=== PATIENT | male | born 1960 | race African-American/Black ===

== ENCOUNTER 2017-01-06 12:00 | Emergency (ER) | payer MEDICAID ==
[~2017-01-06] VITALS: Ht 177.8 cm; Wt 86.5 kg
[2017-01-06] MEDS ORDERED: AMLO5TAB2 PO (12:29)
[2017-01-06] MEDS ORDERED: cholesterol pill PO (12:29)
[2017-01-06] MEDS ORDERED: LISI-167 PO (12:29)
[2017-01-06] MEDS ORDERED: HYDROcodone/APAP 5/325 TABLET ONE (12:48)
[2017-01-06] MEDS ORDERED: HYDROcodone/APAP 5/325 TABLET PO PRN (13:00)
[2017-01-06 13:36] VITALS: BP 147/108
== END 2017-01-06 13:39 | disposition home or self-care (01) ==
LOC: ED 13:27
DX: M72.2 Plantar fascial fibromatosis (principal); M10.9 Gout, unspecified; I10 Essential (primary) hypertension; F12.10 Cannabis abuse, uncomplicated
CPT/HCPCS: 99284

== ENCOUNTER 2017-02-23 13:36 | Emergency (ER) | payer MEDICAID ==
[~2017-02-23] VITALS: Ht 180.3 cm; Wt 83.3 kg
[~2017-02-23 13:36] MED LIST: AMLO5TAB2 PO; LISI-167 PO; cholesterol pill PO
[2017-02-23 13:38] VITALS: BP 145/103
== END 2017-02-23 15:26 ==
LOC: ED 14:24
DX: R31.9 Hematuria, unspecified (principal)
CPT/HCPCS: 99281

== ENCOUNTER 2017-02-23 14:39 | Inpatient (IN) | payer MEDICAID ==
[~2017-02-23] VITALS: Ht 180.3 cm; Wt 87.2 kg
[2017-02-23 15:28] VITALS: BP 159/121
[2017-02-23] MEDS ORDERED: ACETAMINOPHEN 325 MG TABLET PO PRN (15:30)
[2017-02-23] MEDS ORDERED: DOCUSATE 100 MG CAPSULE PO PRN (15:30)
[2017-02-23] MEDS: NICOTINE 14MG/24 HR PATCH.TD24 TD SCH (15:30)
[2017-02-23] MEDS ORDERED: BISACODYL 10 MG SUPP PR PRN (15:30)
[2017-02-23] MEDS ORDERED: ONDANSETRON 2MG/ML, 2ML IVPush PRN (15:30)
[2017-02-23] MEDS ORDERED: POLYETHYLENE GLYCOL 17 GM PACKET PO PRN (15:30)
[2017-02-23] MEDS ORDERED: ZOLPIDEM 5MG TABLET PO PRN (15:30)
[2017-02-23] MEDS ORDERED: OXYcodone IR 5MG TABLET PO PRN (15:30)
[2017-02-23] MEDS ORDERED: CEFTRIAXONE 2 GM in SODIUM CHLORIDE 0.9% 50 ML IV SCH (15:30)
[2017-02-23] MEDS: PLEASE ENTER HEIGHT AND WEIGHT MC SCH (16:00)
[2017-02-23] MEDS: CEFTRIAXONE PMX 2GM/50ML 50 ML IV SCH (16:52)
[2017-02-23] MEDS: metroNIDAZOLE 500 MG TABLET PO SCH ×2 (16:53→21:24)
[2017-02-23 18:24] VITALS: BP 156/116
[2017-02-23] MEDS: hydrALAzine 20 MG/ML, 1ML IVPush PRN (19:52)
[2017-02-23] MEDS: SODIUM CHLORIDE FLUSH 3ML SYRINGE IVF SCH (21:00)
[2017-02-23] MEDS: AMLODIPINE 5 MG TABLET PO SCH (21:24)
[2017-02-24 01:24] VITALS: BP 143/87
[2017-02-24 04:25] LABS: BLOOD UREA NITROGEN 20 mg/dL (7-18)
[2017-02-24] MEDS: PLEASE ENTER HEIGHT AND WEIGHT MC SCH ×2 (08:00)
[2017-02-24 08:57] VITALS: BP 154/11
[2017-02-24] MEDS: SODIUM CHLORIDE FLUSH 3ML SYRINGE IVF SCH ×2 (09:00→21:00)
[2017-02-24] MEDS: hydrALAzine 20 MG/ML, 1ML IVPush PRN ×2 (10:26→17:17)
[2017-02-24] MEDS: metroNIDAZOLE 500 MG TABLET PO SCH ×3 (10:26→20:35)
[2017-02-24] MEDS: AMLODIPINE 5 MG TABLET PO SCH ×2 (10:26→20:35)
[2017-02-24] MEDS: NICOTINE 14MG/24 HR PATCH.TD24 TD SCH (14:27)
[2017-02-24] MEDS: CEFTRIAXONE PMX 2GM/50ML 50 ML IV SCH (16:12)
[2017-02-24 16:25] VITALS: BP 153/125
[2017-02-24 19:34] VITALS: BP 138/84
[2017-02-24] MEDS: CARVEDILOL 25 MG TABLET PO SCH (20:35)
[2017-02-25 03:22] VITALS: BP 146/101
[2017-02-25] MEDS: hydrALAzine 20 MG/ML, 1ML IVPush PRN (03:36)
[2017-02-25 05:25] VITALS: BP 137/95
[2017-02-25] MEDS: CARVEDILOL 25 MG TABLET PO SCH ×2 (05:25→18:06)
[2017-02-25 07:32] VITALS: BP 126/86
[2017-02-25] MEDS: SODIUM CHLORIDE FLUSH 3ML SYRINGE IVF SCH ×2 (07:55→20:46)
[2017-02-25] MEDS: metroNIDAZOLE 500 MG TABLET PO SCH ×3 (07:55→20:45)
[2017-02-25] MEDS: LISINOPRIL 10 MG TABLET PO SCH (07:56)
[2017-02-25] MEDS: AMLODIPINE 5 MG TABLET PO SCH ×2 (07:56→20:46)
[2017-02-25] MEDS: NICOTINE 14MG/24 HR PATCH.TD24 TD SCH (12:50)
[2017-02-25 14:21] VITALS: BP 121/84
[2017-02-25] MEDS: CEFTRIAXONE PMX 2GM/50ML 50 ML IV SCH (15:57)
[2017-02-25 19:51] VITALS: BP 128/95
[2017-02-26 02:32] VITALS: BP 125/90
[2017-02-26] MEDS: CARVEDILOL 25 MG TABLET PO SCH (05:51)
[2017-02-26 05:53] LABS: BLOOD UREA NITROGEN 28 mg/dL (7-18)
[2017-02-26 05:59] LABS: ASPARTATE AMINO TRANSFERASE 25 U/L (15-37)
[2017-02-26 07:26] VITALS: BP 137/101
[2017-02-26] MEDS: metroNIDAZOLE 500 MG TABLET PO SCH (08:41)
[2017-02-26] MEDS: AMLODIPINE 5 MG TABLET PO SCH (08:41)
[2017-02-26] MEDS: LISINOPRIL 10 MG TABLET PO SCH (08:41)
[2017-02-26] MEDS: SODIUM CHLORIDE FLUSH 3ML SYRINGE IVF SCH (09:00)
[2017-02-26] MEDS ORDERED: LISI-167 PO (12:01)
[2017-02-26] MEDS ORDERED: CARV25TA12 PO (12:01)
[2017-02-26] MEDS ORDERED: AMLO5TAB2 PO (12:01)
[2017-02-26] MEDS ORDERED: CEFD300C37 PO (12:01)
[2017-02-26] MEDS ORDERED: METR500T PO (12:01)
[2017-02-26 13:50] VITALS: BP 112/86
== END 2017-02-26 15:40 | disposition home or self-care (01) | DRG 391 ==
LOC: 3NE 14:39 → DCLOUNGE 02-26 15:07
DX: K57.92 Diverticulitis of intestine, part unspecified, without perforation or abscess without bleeding (principal); E43 Unspecified severe protein-calorie malnutrition; N17.0 Acute kidney failure with tubular necrosis; N12 Tubulo-interstitial nephritis, not specified as acute or chronic; B96.20 Unspecified Escherichia coli [E. coli] as the cause of diseases classified elsewhere; I13.10 Hypertensive heart and chronic kidney disease without heart failure, with stage 1 through stage 4 chronic kidney disease, or unspecified chronic kidney disease; I25.10 Atherosclerotic heart disease of native coronary artery without angina pectoris; E78.5 Hyperlipidemia, unspecified; F17.210 Nicotine dependence, cigarettes, uncomplicated; F12.90 Cannabis use, unspecified, uncomplicated; D64.9 Anemia, unspecified; N18.3 Chronic kidney disease, stage 3 (moderate); D69.6 Thrombocytopenia, unspecified; D49.4 Neoplasm of unspecified behavior of bladder; Z83.3 Family history of diabetes mellitus; Z82.49 Family history of ischemic heart disease and other diseases of the circulatory system
CPT/HCPCS: 36415; 80048; 80053; 81001; 85025; J0696; J0360

== ENCOUNTER 2018-12-16 13:33 | Emergency (ER) | payer SELFPAY ==
[~2018-12-16] VITALS: Ht 177.8 cm; Wt 80.0 kg
[~2018-12-16 13:33] MED LIST changes: +AMLO-150 PO; -AMLO5TAB2 PO; +CARV25TA12 PO; +CEFD300C37 PO; +METR500T PO
[2018-12-16 14:03] LABS: BASOPHILS # (AUTO) 0.04 x10^3/uL (0-0.1); BASOPHILS % (AUTO) 1 % (0-1); EOSINOPHILS # (AUTO) 0.14 x10^3/uL (0-0.4); EOSINOPHILS % (AUTO) 2 % (1-7); LYMPHOCYTES # (AUTO) 1.73 x10^3/uL (1-3.4); LYMPHOCYTES % (AUTO) 22 % (22-44); MD NO; MEAN CORPUSCULAR HEMOGLOBIN 27.6 pg (27.5-34.5); MEAN CORPUSCULAR HGB CONC 32.1 g/dL (33.2-36.2); MEAN CORPUSCULAR VOLUME 86.1 fL (81-97); MEAN PLATELET VOLUME 9.1 fL (7.4-10.4); MONOCYTES # (AUTO) 0.39 x10^3/uL (0.2-0.8); MONOCYTES % (AUTO) 5 % (2-9); NEUTROPHILS # (AUTO) 5.71 x10^3/uL (1.8-6.8); NEUTROPHILS % (AUTO) 71 % (42-75); PLATELET COUNT 280 x10^3/uL (130-400); RED BLOOD COUNT 4.49 x10^6/uL (4.38-5.82); RED CELL DISTRIBUTION WIDTH 16.7 % (9.4-14.8)
--- NOTE | 2018-12-16 14:05 | NUR ---
BIB EMS FOR FALL WITH + LOC. UNKOWN REASON TO CAUSE OF FALL. PT HIT HEAD DURING FALL, NO OBVIOUS SIGNS OF TRAUMA, DENIES ANY HEAD OR MIDLINE SPINE PAIN. RESTING ON GURNEY. CP MONITORS IN PLACE. CALL LIGHT IN REACH. SIDERAILS UP X 2.
[2018-12-16 14:13] LABS: ALBUMIN 3.3 g/dL (3.4-5.0); ANION GAP 6 mmol/L (5-15); CALCIUM 8.8 mg/dL (8.5-10.1); CHLORIDE 111 mmol/L (98-107); CREATININE 2.94 mg/dL (0.7-1.3)
[2018-12-16 15:56] VITALS: BP 152/98
== END 2018-12-16 15:58 | disposition home or self-care (01) ==
LOC: ED 15:52
DX: R55 Syncope and collapse (principal); I12.9 Hypertensive chronic kidney disease with stage 1 through stage 4 chronic kidney disease, or unspecified chronic kidney disease; N18.9 Chronic kidney disease, unspecified; F17.200 Nicotine dependence, unspecified, uncomplicated
CPT/HCPCS: 36415; 70450; 80048; 82040; 85025; 93005; 99284